=== PATIENT | male | born 1985 | race Caucasian/White ===

== ENCOUNTER 2019-11-15 08:54 | Emergency (ER) | payer SELFPAY ==
--- NOTE | 2019-11-15 10:38 | RAD ---
RIGHT HAND 3 VIEWS: Date: 11/15/2019 INDICATION: History of right little finger infection. FINDINGS: There is a comminuted, transversely oriented fracture involving the distal phalanx of the right small digit with surrounding soft tissue swelling. There is healed deformity involving the small finger me tacarpal. No additional acute fracture is evident. IMPRESSION: Distal phalangeal fracture of the right small finger with surrounding soft tissue swelling. POS: [facility]
[2019-11-15] MEDS ORDERED: Bupivacaine 0.5% 10 ML VIAL ONE (10:40)
[2019-11-15] MEDS ORDERED: Adacel (T-DAP) 0.5 ML SYRINGE ONE (10:40)
== END 2019-11-15 12:03 | disposition home or self-care (01) ==
LOC: ERS 08:54
DX: S62.636A Displaced fracture of distal phalanx of right little finger, initial encounter for closed fracture (principal); F17.210 Nicotine dependence, cigarettes, uncomplicated; X58.XXXA Exposure to other specified factors, initial encounter
CPT/HCPCS: 11760; 90471; 90715; J3490